=== PATIENT | female | born 1980 | race African-American/Black ===

== ENCOUNTER 2021-04-21 10:41 | Emergency (ER) | payer OTHER ==
[~2021-04-21] VITALS: Ht 175.3 cm; Wt 127.0 kg
[~2021-04-21 10:41] MED LIST: CIPROFLOXACIN500 M1 PO; GLUCOPHAGE1000 MG PO; GLYBURIDE 2.52.5 M1 PO; HYDROCHLOROTHIA25 M1 PO; QUINU10 PD; ULTRAM 50MG TAB50 MG PO
[2021-04-21] MEDS ORDERED: OMEPRAZOLE40 MG PO (11:24)
[2021-04-21] MEDS ORDERED: MEDROXYPROGESTE10 MG PO (11:24)
[2021-04-21] MEDS ORDERED: TRULICITY1.5 MG/0.5 SUBQ (11:26)
[2021-04-21] MEDS ORDERED: ATORVASTATIN CA20 MG PO (11:26)
[2021-04-21 11:37] LABS: ABSOLUTE NEUTROPHILS 4.8 thou/uL (1.4-8.2); BASOPHILS 0.7 % (0.0-2.0); EOSINOPHILS 1.2 % (0.0-3.0); LYMPHOCYTES 25.3 % (24.0-44.0); MCH 21.2 pg (26.0-34.0); MCHC 30.5 g/dL (28.0-37.0); MCV 69.6 fL (80.0-100.0); MONOCYTES 6.5 % (1.0-8.0); PLATELET COUNT 523 thou/uL (150-400); POLYS 66.3 % (36.0-66.0); RBC 2.73 mil/uL (4.20-5.00); WBC 7.3 thou/uL (4.0-11.0)
[2021-04-21 11:40] LABS: HEMOGLOBIN 5.8 gm/dL (12.0-15.0)
[2021-04-21 11:48] LABS: CALCIUM 8.5 mg/dL (8.5-10.1); CREATININE 0.7 mg/dL (0.6-1.0); POTASSIUM 3.9 mmol/L (3.5-5.1)
[2021-04-21 11:55] LABS: ALBUMIN 3.3 g/dL (3.4-5.0); TOTAL BILIRUBIN 0.2 mg/dL (0.2-1.0); TOTAL PROTEIN 7.1 g/dL (6.4-8.2)
[2021-04-21 12:08] LABS: % SATURATION 2 % (20-39); ANISOCYTOSIS 1+; HYPOCHROMASIA 2+; IRON 8 ug/dL (50-170); PLATELET ESTIMATE NORMAL; POLYCHROMASIA SLIGHT; TIBC 394 ug/dL (250-450)
[2021-04-21 13:46] VITALS: BP 144/92; BP 146/89; BP 148/101
[2021-04-21 17:44] VITALS: BP 146/89
== END 2021-04-21 17:57 | disposition home or self-care (01) ==
LOC: ER 10:41
PROVIDERS: Physician Assistant
DX: D64.9 Anemia, unspecified (principal); N93.8 Other specified abnormal uterine and vaginal bleeding; E11.9 Type 2 diabetes mellitus without complications; I10 Essential (primary) hypertension

== ENCOUNTER 2021-08-29 18:21 | Emergency (ER) | payer OTHER ==
[~2021-08-29] VITALS: Ht 177.8 cm; Wt 120.2 kg
[~2021-08-29 18:21] MED LIST changes: +ATORVASTATIN CA20 MG PO; +MEDROXYPROGESTE10 MG PO; +OMEPRAZOLE40 MG PO; +TRULICITY1.5 MG/0.5 SUBQ
[2021-08-29] MEDS ORDERED: LISINOPRIL20 MG PO (18:46)
[2021-08-29 18:50] LABS: BASOPHILS 0.3 % (0.0-2.0); EOSINOPHILS 1.2 % (0.0-3.0); HEMATOCRIT 26.5 % (37.0-47.0); LYMPHOCYTES 26.5 % (24.0-44.0); MCH 21.8 pg (26.0-34.0); MCHC 30.4 g/dL (28.0-37.0); MCV 71.9 fL (80.0-100.0); MONOCYTES 5.3 % (1.0-8.0); PLATELET COUNT 427 thou/uL (150-400); POLYS 66.7 % (36.0-66.0); RBC 3.69 mil/uL (4.20-5.00); RDW 21.7 % (10.5-14.5); WBC 10.5 thou/uL (4.0-11.0)
[2021-08-29 18:56] LABS: CALCIUM 9.1 mg/dL (8.5-10.1); CREATININE 0.8 mg/dL (0.6-1.0); POTASSIUM 3.2 mmol/L (3.5-5.1)
[2021-08-29 19:54] VITALS: BP 147/102
--- NOTE | 2021-08-31 07:38 | EKG ---
[address] [address] ELECTROCARDIOGRAM REPORT Name: FROILAN SCHMIDT Room #: [facility] [place]#: [id number] Admission: 08/29/21 Attend Phys: Discharge: 08/29/21 Date of : 78 Report #: [id number] [facility] ED Test Date: 2021-08-29 Test Time: 18:49:09 Pat Name: FROILAN SCHMIDT Department: Room: Gender: F Section [employer] Activities Clerk: ALANA : 1980 Requested By: Zachary Li Order Number: [id number] MD: Favio Frey Measurements Intervals Anderson Rate: 95 P: 42 VT: 153 QRS: 46 QRSD: 86 T: 32 QT: 343 QTc: 431 Interpretive Statements Sinus rhythm No previous ECG available for comparison Electronically Signed On 08-31-2021 7:38:10 [employer] by Favio Frey [email or web address] <ELECTRONICALLY SIGNED> By: Favio Frey MD, [facility] 08/31/21 0738 1849 1849 Favio Frey MD, FACC /EPI
== END 2021-08-29 19:54 | disposition home or self-care (01) ==
LOC: ER 18:21
PROVIDERS: Student in an Organized Health Care Education/Training Program
DX: R53.1 Weakness (principal); E11.9 Type 2 diabetes mellitus without complications; I10 Essential (primary) hypertension; Z79.899 Other long term (current) drug therapy